=== PATIENT | female | born 1955 | race African-American/Black ===

== ENCOUNTER 2021-02-04 16:06 | Emergency (ER) | payer OTHER ==
[2021-02-04 16:27] VITALS: BP 169/98; PULSE 63; TEMP 99; BMI 27.1
[2021-02-04] MEDS ORDERED: KETOROLAC TROMETHAMINE 60 MG/2 ML VIAL IM ONE (17:41)
== END 2021-02-04 17:42 | disposition home or self-care (01) ==
LOC: JERFT 16:06
PROC: 3E0233Z Introduction of Anti-inflammatory into Muscle, Percutaneous Approach (ICD-10-PCS; principal; 2021-02-04)
DX: M26.601 Right temporomandibular joint disorder, unspecified (principal); M26.621 Arthralgia of right temporomandibular joint
CPT/HCPCS: 96372; 99284-25

== ENCOUNTER 2023-03-03 21:43 | Emergency (ER) | payer OTHER ==
[2023-03-03 21:55] VITALS: BP 167/84; PULSE 100; RESP 18; TEMP 99.6; BMI 28.3
[2023-03-03 23:16] LABS: BASO % 0.5 % (0-2.0); EOS % 0.2 % (0-4.5); HEMATOCRIT 37.5 % (32.4-45.2); HEMOGLOBIN 12.2 GM/dL (10.7-15.3); LYMPH % 6.8 % (8-40); MCH 29.2 pg (25.7-33.7); MCHC 32.6 g/dl (32.0-36.0); MEAN CELL VOLUME 89.6 fl (80-96); MEAN PLT VOLUME 7.9 fl (7.5-11.1); MONO % 8.3 % (3.8-10.2); NEUT % 84.2 % (42.8-82.8); PLATELET COUNT 200 10^3/uL (134-434); RBC 4.18 M/mm3 (3.60-5.2); RDW 13.3 % (11.6-15.6); WHITE BLOOD COUNT 8.8 K/mm3 (4.0-10.0)
[2023-03-03 23:32] LABS: POTASSIUM 3.6 mmol/L (3.5-5.1)
[2023-03-03 23:34] LABS: CALCIUM 8.9 mg/dL (8.5-10.1)
[2023-03-03 23:36] LABS: ALBUMIN 3.6 g/dl (3.4-5.0); BLOOD UREA NITROGEN 9.7 mg/dL (7-18)
[2023-03-03 23:39] LABS: CREATININE 0.9 mg/dL (0.55-1.3)
[2023-03-03 23:40] LABS: TOT PROT 7.1 g/dl (6.4-8.2)
[2023-03-03 23:53] LABS: BILIRUBIN,TOTAL 0.3 mg/dL (0.2-1)
== END 2023-03-04 00:55 | disposition home or self-care (01) ==
LOC: JER 21:43
DX: R50.9 Fever, unspecified (principal); R53.83 Other fatigue; R51.9 Headache, unspecified; R63.0 Anorexia; R10.11 Right upper quadrant pain; R10.13 Epigastric pain; U07.1 COVID-19
CPT/HCPCS: 0241U-QW; 36415; 76705-TC; 80053; 82150; 83690; 85025; 87086; 99284-25

== ENCOUNTER 2023-12-31 12:25 | Emergency (ER) | payer OTHER ==
[2023-12-31 12:51] VITALS: BP 126/64; PULSE 61; RESP 17; TEMP 99; BMI 26.1
[2023-12-31 14:06] LABS: BASO % 0.5 % (0-2.0); EOS % 0.3 % (0-4.5); HEMOGLOBIN 12.3 GM/dL (10.7-15.3); LYMPH % 13.3 % (8-40); MCH 29.8 pg (25.7-33.7); MCHC 33.1 g/dl (32.0-36.0); MEAN CELL VOLUME 90.1 fl (80-96); MEAN PLT VOLUME 7.4 fl (7.5-11.1); MONO % 4.4 % (3.8-10.2); NEUT % 81.5 % (42.8-82.8); PLATELET COUNT 205 10^3/uL (134-434); RBC 4.11 M/mm3 (3.60-5.2); RDW 13.1 % (11.6-15.6); WHITE BLOOD COUNT 6.2 K/mm3 (4.0-10.0)
[2023-12-31] MEDS ORDERED: ACETAMINOPHEN INJECTION 100 ML IVPB ONE (14:16)
[2023-12-31] MEDS ORDERED: METOCLOPRAMIDE HCL INJECTION 10 MG/2 ML VIAL ONE (14:16)
[2023-12-31] MEDS ORDERED: MECLIZINE HCL 25 MG TABLET (FP) ONE (14:16)
[2023-12-31] MEDS: LACTATED RINGERS SOLUTION 1000 ML INFUS.BAG IV ONE (14:19)
[2023-12-31] MEDS: ACETAMINOPHEN 1000 MG/100 ML BAG IVPB ONE (14:19)
[2023-12-31] MEDS: MECLIZINE HCL 25 MG TABLET (FP) PO ONE (14:19)
[2023-12-31] MEDS: METOCLOPRAMIDE HCL INJECTION 10 MG/2 ML VIAL IVPUSH ONE (14:19)
[2023-12-31 14:22] LABS: POTASSIUM 4.2 mmol/L (3.5-5.1)
[2023-12-31 14:24] LABS: CALCIUM 8.8 mg/dL (8.5-10.1)
[2023-12-31 14:25] LABS: ALBUMIN 3.7 g/dl (3.4-5.0); BLOOD UREA NITROGEN 11.6 mg/dL (7-18); MAGNESIUM 2.2 mg/dL (1.8-2.4)
[2023-12-31 14:28] LABS: CREATININE 0.8 mg/dL (0.55-1.3)
[2023-12-31 14:29] LABS: BILIRUBIN,TOTAL 0.4 mg/dL (0.2-1); TOT PROT 7.1 g/dl (6.4-8.2)
[2023-12-31 15:26] LABS: EPI CELLS 32 /uL (0-25.1); HYALINE CASTS 0 /uL (0-3.1); URINE APPEARANCE CLEAR; URINE BACTERIA 534 /uL (0-1359); URINE BILIRUBIN NEGATIVE (NEGATIVE); URINE COLOR YELLOW; URINE GLUCOSE (UA) NEGATIVE (NEGATIVE); URINE KETONE 1+ (NEGATIVE); URINE LEUK ESTERASE NEGATIVE (NEGATIVE); URINE NITRITE NEGATIVE (NEGATIVE); URINE PROTEIN NEGATIVE (NEGATIVE); URINE RBC 102 /uL (0-23.9); URINE UROBILINOGEN 0.2 mg/dL (0.2-1.0); URINE WBC 14 /uL (0-25.8)
== END 2023-12-31 15:55 | disposition home or self-care (01) ==
LOC: JER 12:25
PROC: 3E033NZ Introduction of Analgesics, Hypnotics, Sedatives into Peripheral Vein, Percutaneous Approach (ICD-10-PCS; principal; 2023-12-31)
PROC: 3E033GC Introduction of Other Therapeutic Substance into Peripheral Vein, Percutaneous Approach (ICD-10-PCS; 2023-12-31)
DX: R51.9 Headache, unspecified (principal); R19.7 Diarrhea, unspecified; R11.0 Nausea; Z20.822 Contact with and (suspected) exposure to COVID-19
CPT/HCPCS: 0241U-QW; 36415; 80053; 81003; 83735; 85025; 87086; 93005; 93010; 99284-25; J0131

== ENCOUNTER 2024-01-01 18:16 | Emergency (ER) | payer OTHER ==
[2024-01-01 18:22] VITALS: BP 169/82; PULSE 84; RESP 18; TEMP 99; BMI 26.1
[2024-01-01 20:22] LABS: BASO % 0.7 % (0-2.0); HEMATOCRIT 34.9 % (32.4-45.2); HEMOGLOBIN 11.7 GM/dL (10.7-15.3); LYMPH % 23.2 % (8-40); MCH 30.2 pg (25.7-33.7); MCHC 33.6 g/dl (32.0-36.0); MEAN PLT VOLUME 7.2 fl (7.5-11.1); MONO % 7.7 % (3.8-10.2); NEUT % 67.4 % (42.8-82.8); PLATELET COUNT 202 10^3/uL (134-434); RBC 3.88 M/mm3 (3.60-5.2); RDW 13.2 % (11.6-15.6); WHITE BLOOD COUNT 6.8 K/mm3 (4.0-10.0)
[2024-01-01] MEDS ORDERED: METOCLOPRAMIDE HCL INJECTION 10 MG/2 ML VIAL ONE (20:23)
[2024-01-01] MEDS: SODIUM CHLORIDE 0.9% 500 ML INFUS.BAG IV ONE (20:31)
[2024-01-01] MEDS: ACETAMINOPHEN 1000 MG/100 ML BAG IVPB ONE (20:31)
[2024-01-01] MEDS: METOCLOPRAMIDE HCL INJECTION 10 MG/2 ML VIAL IVPUSH ONE (20:31)
[2024-01-01 20:44] LABS: POTASSIUM 4.1 mmol/L (3.5-5.1)
[2024-01-01 20:46] LABS: CALCIUM 8.8 mg/dL (8.5-10.1)
[2024-01-01 20:47] LABS: ALBUMIN 3.4 g/dl (3.4-5.0); BLOOD UREA NITROGEN 15.4 mg/dL (7-18)
[2024-01-01 20:50] LABS: CREATININE 0.9 mg/dL (0.55-1.3)
[2024-01-01 20:51] LABS: TOT PROT 6.6 g/dl (6.4-8.2)
[2024-01-01 20:52] LABS: BILIRUBIN,TOTAL 0.2 mg/dL (0.2-1)
== END 2024-01-01 23:42 | disposition home or self-care (01) ==
LOC: JER 18:16
PROC: 3E033GC Introduction of Other Therapeutic Substance into Peripheral Vein, Percutaneous Approach (ICD-10-PCS; principal; 2024-01-01)
PROC: 3E033GC Introduction of Other Therapeutic Substance into Peripheral Vein, Percutaneous Approach (ICD-10-PCS; 2024-01-01)
DX: R51.9 Headache, unspecified (principal); R42 Dizziness and giddiness
CPT/HCPCS: 36415; 70450-TC; 70496-TC; 80053; 84484; 85025; 93005; 93010; 99285-25; Q9967

== ENCOUNTER 2024-11-22 05:24 | Emergency (ER) | payer OTHER ==
[2024-11-22 05:35] VITALS: RESP 18; TEMP 99; BMI 25.4
[2024-11-22] MEDS ORDERED: FAMOTIDINE 20 MG/50 ML IVPB 20 MG/50 ML MG IVPB ONE (06:05)
[2024-11-22] MEDS ORDERED: ACETAMINOPHEN INJECTION 100 ML ONE (06:05)
[2024-11-22] MEDS: SODIUM CHLORIDE 1,000 ML IV STA (06:16)
[2024-11-22] MEDS: FAMOTIDINE 20 MG/50 ML IVPB 20 MG/50 ML MG IVPB ONE (06:16)
[2024-11-22 06:30] LABS: ABSOLUTE IMMATURE GRANULOCYTES 0.02 x10^3/uL (0.0-0.031); BASOPHILS # 0.01 x10^3/uL (0.01-0.08); EOSINOPHIL % 0.4 % (0.7-5.8); EOSINOPHILS # 0.02 x10^3/uL (0.04-0.36); HEMATOCRIT 36.2 % (34.1-44.9); HEMOGLOBIN 11.6 g/dL (11.2-15.7); MEAN CELL VOLUME 90.5 fl (79.4-94.8); MEAN PLT VOLUME 9.7 fl (9.4-12.3); MONOCYTE # 0.56 x10^3/uL (0.24-0.86); MONOCYTE % 10.4 % (4.7-12.5); PLATELET COUNT 199 x10^3/uL (182-369); RDW 12.5 % (12.4-16.4)
[2024-11-22 06:38] LABS: INR 1.08 (0.83-1.09); PROTHROMBIN TIME (PATIENT) 11.8 SEC (9.7-13.0)
[2024-11-22 06:41] LABS: ACTIVATED PTT 30.2 SECONDS (25.2-36.5)
[2024-11-22] MEDS: ACETAMINOPHEN 1000 MG/100 ML BAG IVPB ONE (06:41)
[2024-11-22 06:47] LABS: POTASSIUM 3.8 mmol/L (3.5-5.1)
[2024-11-22 06:49] LABS: ALBUMIN 3.6 g/dl (3.4-5.0); CALCIUM 8.8 mg/dL (8.5-10.1)
[2024-11-22 06:52] LABS: CREATININE 0.7 mg/dL (0.55-1.3)
[2024-11-22 06:54] LABS: EPI CELLS 22 /uL (0-25.1); HYALINE CASTS 0 /uL (0-3.1); URINE APPEARANCE CLEAR; URINE BACTERIA 387 /uL (0-1359); URINE BILIRUBIN NEGATIVE (NEGATIVE); URINE COLOR YELLOW; URINE GLUCOSE (UA) NEGATIVE (NEGATIVE); URINE KETONE NEGATIVE (NEGATIVE); URINE LEUK ESTERASE TRACE (NEGATIVE); URINE NITRITE NEGATIVE (NEGATIVE); URINE PROTEIN TRACE (NEGATIVE); URINE WBC 22 /uL (0-25.8)
[2024-11-22 06:54] LABS: BILIRUBIN,TOTAL 0.4 mg/dL (0.2-1); TOT PROT 6.8 g/dl (6.4-8.2)
[2024-11-22 07:50] LABS: URINE RBC 122.2 /uL (0-23.9); YEAST NONE SEN (NEGATIVE)
[2024-11-22 08:41] VITALS: BP 145/75; PULSE 61
== END 2024-11-22 08:47 | disposition home or self-care (01) ==
LOC: JER 05:24
PROC: 3E033GC Introduction of Other Therapeutic Substance into Peripheral Vein, Percutaneous Approach (ICD-10-PCS; principal; 2024-11-22)
PROC: 3E033NZ Introduction of Analgesics, Hypnotics, Sedatives into Peripheral Vein, Percutaneous Approach (ICD-10-PCS; 2024-11-22)
PROC: 3E0337Z Introduction of Electrolytic and Water Balance Substance into Peripheral Vein, Percutaneous Approach (ICD-10-PCS; 2024-11-22)
DX: R19.7 Diarrhea, unspecified (principal); R10.11 Right upper quadrant pain; R07.9 Chest pain, unspecified; R10.13 Epigastric pain
CPT/HCPCS: 0241U-QW; 36415; 76705-TC; 80053; 81003; 83690; 83735; 85025; 85610; 85730; 87086; 96361; 96365; 96375; 99285-25; J0131